=== PATIENT | female | born 1985 | race Caucasian/White ===

== ENCOUNTER 2020-01-14 14:44 | Inpatient (IN) ==
[2020-01-14] MEDS ORDERED: OXYTOCIN 30 UNITS/500 ML BAG IV PRN ×2 (15:00→22:17)
--- NOTE | 2020-01-14 15:06 | History & Physical Report ---
Date of Service January 14, 2020 Assessment & Plan (1) Active labor at term: 34 yo F @ 40+ weeks with no complications this here for monitoring of active labor. - Pt desires not to have artificial rupture of membranes at this time. Will continue to monitor labor progression. - Pt would not like an epidural at this time. - Expect . History of Present Illness Primary Care Provider: NO PCP Bella is a 34 yo F ; EDC 01/12/2020 at 40+ weeks today, admitted for induction of labor; no complications this . care by [facility]. Confirms contractions q3 minutes, good movement; no gush of fluid or vaginal bleeding. Labor plan includes NO epidural; in first had "Fentanyl as needed". Labs (06/09/2019): Blood type: A+ Antibody screen: negative Rubella status: immune VDLR/RPR: NR Gonorrhea: negative Chlamydia: negative HIV: negative GBS: negative HbSAg: negative Glucose tolerance test x2: normal OB Hx: last 10/05/17 39wks, labored for 22 hours before delivering a healthy [id number] baby boy via . [employer]ST Hx: Hx of ASCUS PAP 06/09/2019 with HPV cotesting negative. No other Hx abnormal PAPs. No Hx STIs. Allergies Allergy/AdvReac Type Severity Reaction Status Date / Time amoxicillin Allergy Hives Verified 01/14/20 14:53 azithromycin Allergy Hives Verified 01/14/20 14:53 [From Zithromax Z-Adonay] venlafaxine [From Effexor] Allergy Palpitation Verified 01/14/20 14:53 s Home Medications Home Medications Medication Instructions Recorded Confirmed Type prenat.vits,evelyn,[id number] 1 tab PO DAILY 06/06/19 01/14/20 History sertraline 100 mg tablet 100 mg PO DAILY 06/06/19 01/14/20 History ferrous sulfate 325 mg (65 mg 325 mg PO DAILY 01/07/20 01/14/20 History iron) tablet Patient History Medical History screening for malformation using ultrasonics (Resolved) History of anemia History of migraine History of varicella Surgical History No history of previous surgery Family History Mother Heart disease Osteoporosis Father Kidney stones Thyroid disease Social History (Updated 06/06/19 @ 16:43 by Danica Jones) Preferred Language: Upper Sorbian Editorial Clerk Required: No Beliefs That Will Affect Care: None marital status: Current Living Situation: Family Current Living Situation Comment: lives with and son Other Information That Helps Us Care for You: No Feels Safe at Home: Yes Safety Concerns: Feels Safe At This Time Smoking Status: Former smoker Hx Alcohol Use: No Hx Substance Use: No Review of Systems Constitutional: denies fever, chills, sweats, headache Respiratory: denies SOB, difficulty breathing Cardiac: denies CP, chest palpitations, chest pressure Breast: denies breast pain : denies dysuria Physical Exam Physical Exam: General: patient is alert and oriented, in NAD Cardiac: +S1/S2, no murmurs rubs or gallops Respiratory: lungs CTA b/l, anteriorly and posteriorly, no wheezes rales or rhonchi, no increased work of breathing, symmetric chest rise, no respiratory distress Abdomen: Gravid, fundal height is term, + FHTs, baby is presenting vertex, + palpable contractions every 3 minutes, EFW 7-8lbs Uterus: uterine fundus firm Lower Extremities: no LE edema or swelling, no deep calf pain, Clayton's sign negative b/l Genitourinary: Manual OB Exam: + cervical dilation 6 cm, + cervical effacement 100% and + station -2 OB Exam Monitor Tracing: + external FHT monitor used, + external uterine monitor used, + category I and + normal FHT variability Results & Data Vital Signs (Past 12 Hours) Vital Signs Pulse BP 01/14/20 14:51 73 113/76 Code Status & VTE Plan VTE Prophylaxis Plan VTE Prophylaxis will be ordered: No Monitoring External Monitor HR in the 140s with good variability. Tocodynamometer contractions q3 minutes Supervising Physician Co-Signing Physician Notes Resident Physician Supervision Note: I was present with Dr. Willson during the history and exam. I discussed the case with the resident and agree with the findings and plan as documented in the note. Any exceptions or clarifications are listed here: Term, , active labor. category one fetus. Anticipate . Declines intervention at this time. Offered arom. Documented By: Ana M Ramos MD, FACOG Coding Level of Care Code None Diagnoses Active labor at term Resident Activity Tracking Resident Involvement: Resident Care Provided Care Provided: OB Delivery
[2020-01-14] MEDS ORDERED: fentaNYL citrate 100 MCG/2 ML VIAL ONE (15:40)
[2020-01-14] MEDS ORDERED: ePHEDrine sulfate 50 MG/ML AMP ONE (15:40)
[2020-01-14] MEDS ORDERED: fentaNYL 2MCG/ML ROPIV 1.25MG/ML 100 ML BAG EPI ONE (15:41)
[2020-01-14] MEDS ORDERED: BUPIVACAINE 0.25% 30 ML VIAL ONE (15:41)
[2020-01-14] MEDS: LACTATED RINGER'S 1,000 ML IV PRN ×2 (15:43→16:40)
[2020-01-14 15:44] LABS: Hematocrit (blood only) 35.6 % (37-47); Hemoglobin 12.8 g/dL (12.0-16.0); Mean Corpuscular Hemoglobin 34.3 pg (25-34); Mean Corpuscular Volume 95.4 fL (80-100); Mean Platelet Volume 10.7 fL (7.4-10.4); Platelet Count 223 K/uL (130-400); RDW Coefficient of Variation 13.3 % (11.5-14.5); RDW Standard Deviation 45.9 fL (36.4-46.3); Red Blood Count 3.73 M/uL (4.2-5.4); White Blood Count 11.33 K/uL (4.8-10.8)
[2020-01-14] MEDS ORDERED: NALOXONE HCL 0.4 MG/1 ML VIAL/CARP IV PRN (15:55)
[2020-01-14] MEDS ORDERED: DiphenhydrAMINE HCL 50 MG/ML VIAL IV PRN (15:55)
[2020-01-14] MEDS ORDERED: fentaNYL 2MCG/ML ROPIV 1.25MG/ML 100 ML BAG EPI PRN (15:55)
[2020-01-14] MEDS ORDERED: NALBUPHINE HCL INJ 10 MG/ML AMP IV PRN (15:55)
[2020-01-14] MEDS ORDERED: NALOXONE HCL 1 MG in SODIUM CHLORIDE 0.9% 1000ML 1,000 ML IV PRN (15:55)
[2020-01-14] MEDS ORDERED: ONDANSETRON INJ 2 MG/ML 2 ML VIAL IV PRN (15:55)
[2020-01-14] MEDS ORDERED: ePHEDrine sulfate 50 MG/ML AMP IV PRN (15:55)
--- NOTE | 2020-01-14 15:56 | Anesthesiology Consultation ---
Date of Service January 14, 2020 Assessment & Plan Chart Review Chart Review: Patient NOT seen in Pre Admission Testing and Acceptable Risk for Labor Epidural Consults Requested none ASA ASA2 Proposed Anesthesia Anesthesia Type: Labor Epidural and CSE Risk / Benefits Reviewed With: PT / POA / Parent / Guardian, Accepts Plan and Informed Consent Obtained History Height/Weight Height: 5 ft 4 in Weight: 67.585 kg Allergies Allergy/AdvReac Type Severity Reaction Status Date / Time amoxicillin Allergy Hives Verified 01/14/20 14:53 azithromycin Allergy Hives Verified 01/14/20 14:53 [From Zithromax Z-Adonay] venlafaxine [From Effexor] Allergy Palpitation Verified 01/14/20 14:53 s Medications Home Medications Medication Instructions Recorded Confirmed Last Taken prenat.vits,evelyn,[id number] 1 tab PO DAILY 06/06/19 01/14/20 01/13/20 21:00 sertraline 100 mg tablet 100 mg PO DAILY 06/06/19 01/14/20 01/14/20 09:00 ferrous sulfate 325 mg (65 mg 325 mg PO DAILY 01/07/20 01/14/20 01/13/20 18:00 iron) tablet Active Medications Generic Name Dose Route Start Last Admin Trade Name Freq PRN Reason Stop Dose Admin Lactated Ringer's 1,000 mls @ 125 mls/hr 01/14/20 15:00 01/14/20 15:43 Lr IV 01/16/20 14:59 999 mls/hr .Q8H PRN Administration L&D Protocol Protocol NPO Date Last Intake of Fluids: 01/14/20 Time Last Intake of Fluids: 15:00 Date Last Intake of Solids: 01/14/20 Time Last Intake of Solids: 11:30 Past Medical History Medical History screening for malformation using ultrasonics (Resolved) History of anemia History of migraine History of varicella Exercise / Class Metabolic Activity II 4-5 Yardwork/Stairs/Walk up hill Past Family History Family History Mother Heart disease Osteoporosis Father Kidney stones Thyroid disease Past Surgical History Surgical History No history of previous surgery Past Anesthesia History No Hx of Anesthesia Complications and No Family Hx of Anesthesia Complications History of PONV No Hx of PONV and No Hx of Motion Sickness Social History Smoking Status: Former smoker Hx Alcohol Use: No Hx Substance Use: No substance use type: does not use Review of Systems no chest pain or sob Physical Exam Vital Signs Last Vital Signs Temp 36.6 C 01/14/20 14:52 Pulse 81 01/14/20 15:54 Resp 16 01/14/20 14:52 BP 113/76 01/14/20 14:51 Pulse Ox 91 01/14/20 15:54 ENMT Mouth: no TMJ abnormality Thyromental Distance: > or= 3.5 Finger Breadths Mallampati Class: II Neck normal visual inspection Respiratory normal respiratory effort Auscultation: lungs clear to auscultation bilaterally Cardiovascular Rate/Rhythm: regular rate and regular rhythm Musculoskeletal Spine: normal cervical ROM Neurologic moves all extremities Psychiatric Orientation: alert and oriented x 3 Testing Laboratory Results 01/14/20 15:19
--- NOTE | 2020-01-14 16:58 | Labor Progress Brief Note ---
Date of Service January 14, 2020 Subjective comfortable after epidural Assessment & Plan (1) Active labor at term: progressing nicely. fetus overall reassuring. anticipate . Physical Exam 2 Constitutional: WD/WN, vitals as above Gastrointestinal (Abdomen): soft, gravid, nt Psychiatric: A+Ox3, euthymic affect Genitourinary: cx--/0 arom--copious clear toco--q2min efm--125 wtih mod variability, accels present, no decels after arom had a decel to 80s that resolved with position change, oxygen, fluid then 0 Results & Data Vital Signs (Past 12 Hours) Vital Signs Temp Pulse Resp BP Pulse Ox 01/14/20 16:50 96 H 121/77 01/14/20 16:49 95 H 97 01/14/20 16:46 96 H 98/57 L 01/14/20 16:44 95 H 99 01/14/20 16:39 99 H 100 01/14/20 16:38 98 H 122/65 01/14/20 16:36 105 H 118/73 01/14/20 16:34 98 H 102/67 98 01/14/20 16:32 100 H 109/69 01/14/20 16:30 96 H 105/65 01/14/20 16:29 95 H 100 01/14/20 16:28 93 H 110/65 01/14/20 16:26 100 H 109/62 01/14/20 16:24 105 H 105/63 99 01/14/20 16:20 104 H 106/62 01/14/20 16:19 95 H 100 01/14/20 16:16 98 H 109/72 01/14/20 16:15 18 01/14/20 16:14 101 H 101/65 99 01/14/20 16:12 93 H 99/60 L 01/14/20 16:10 98 H 16 106/55 L 01/14/20 16:09 100 H 98 01/14/20 16:08 95 H 98/55 L 01/14/20 16:06 97 H 108/58 L 01/14/20 16:04 97 H 96 01/14/20 16:01 84 84 L 01/14/20 15:59 91 H 97 01/14/20 15:54 81 91 01/14/20 15:49 91 H 99 01/14/20 15:44 78 100 01/14/20 14:52 36.6 C 16 01/14/20 14:51 73 113/76 Coding Level of Care Code None Diagnoses Active labor at term
[2020-01-14] MEDS ORDERED: OXYCODONE/ACETAMINOPHEN 5mg/325mg TAB PO PRN (19:05)
[2020-01-14] MEDS ORDERED: ACETAMINOPHEN 325 MG TAB PO PRN (19:05)
--- NOTE | 2020-01-14 19:08 | Delivery Summary ---
Vaginal Delivery Summary Date of Service January 14, 2020 Pre-operative Diagnosis: at 40 weeks labor Post-operative Diagnosis: same Procedure: epidural arom second degree laceration and repair EBL: 300cc Anesthesia: epidural Procedure: The patient pushed for about two contractions to deliver a viable m betito in kali position. The nose and mouth were bulb suctioned on the perineum and the rest of the was then delivered without difficulty. The nose and mouth were again bulb suctioned and the infant was placed in the maternal abdomen for drying and attention. Cord was clamped and cut at one minute of life. Cord blood and segment obtained. Placenta delivered spontaneous, intact with a three vessel cord. Cervix/sulci/rectum were intact. A second degree perineal laceration was repaired in the normal standard fashion. Hemostasis obtained with dilute pitocin and fundal massage. Apgars were 7/8. Mother and baby doing well at the end of the delivery.
[2020-01-14] MEDS ORDERED: SUPERCREAM 0.870% 15 GM JAR EXT PRN (22:17)
[2020-01-14] MEDS ORDERED: bisacodyL 10 MG SUPP PR PRN (22:17)
[2020-01-14] MEDS ORDERED: HYDROCORTISONE ACETATE 25 MG SUPP PR PRN (22:17)
[2020-01-14] MEDS ORDERED: BENZOCAINE 20% AER SPR 82.5 GM CAN EXT PRN (22:17)
[2020-01-14] MEDS ORDERED: DIPHTHERIA/TETANUS/PERTUSSIS 0.5 ML SYR/VIAL IM ONE (22:17)
[2020-01-14] MEDS: DOCUSATE SODIUM 100 MG CAP PO SCH (23:02)
[2020-01-15] MEDS: IBUPROFEN 600 MG TAB PO PRN ×2 (04:42→17:41)
[2020-01-15 06:32] LABS: Hematocrit (blood only) 28.9 % (37-47); Hemoglobin 10.2 g/dL (12.0-16.0)
--- NOTE | 2020-01-15 06:35 | Obstetrical Progress Note ---
Date of Service <Stacy Willson - Last Filed: 01/15/20 06:58> January 15, 2020 Assessment & Plan <Stacy Willson - Last Filed: 01/15/20 06:58> (1) Encounter for care and examination after delivery: 34 yo PPD #1 from [facility] at 40+ weeks. Doing well overnight and without complaints. - Will continue routine care. - Following discharge will have 6 week follow up appointment with Dr. Ramos. Subjective <Stacy Armstrongfaina - Last Filed: 01/15/20 06:58> 34 yo female ; PPD # 1 following vaginal delivery at 40+ weeks (EDC 01/12/2020); doing well this AM; no abdominal cramping/pain; voiding well; tolerating meals overnight, able to ambulate some within the room. Patient is which she reports is going well and that Luke is "getting the hang of it faster than her first". Some vaginal bleeding that she reports is more than after her first delivery but no headache, dizziness, shortness of breath, chest pain. Review of Systems Constitutional: denies fever, chills, sweats, headache Respiratory: denies SOB, difficulty breathing Cardiac: denies CP, chest palpitations, chest pressure Breast: denies breast pain : denies dysuria Physical Exam <Stacy Willson - Last Filed: 01/15/20 06:58> General: patient is alert and oriented, in NAD Cardiac: +S1/S2, no murmurs rubs or gallops Respiratory: lungs CTA b/l, anteriorly and posteriorly, no wheezes rales or rhonchi, no increased work of breathing, symmetric chest rise, no respiratory distress Abdomen: soft, NT, +bowel sounds Uterus: uterine fundus firm, palpable below the level of the umbilicus Lower Extremities: no LE edema or swelling, no deep calf pain, Clayton's sign negative b/l Results & Data <Stacy ArmstrongDO faina - Last Filed: 01/15/20 06:58> Vital Signs (Past 12 Hours) Vital Signs Temp Pulse Pulse Resp BP BP Pulse Ox 01/15/20 04:35 36.7 C 76 18 128/74 01/14/20 23:30 36.7 C 93 H 18 131/82 01/14/20 22:10 36.7 C 93 H 18 125/76 01/14/20 21:05 100 H 114/73 01/14/20 20:50 96 H 118/72 01/14/20 20:35 91 H 131/78 01/14/20 20:20 82 133/71 01/14/20 20:05 88 119/79 01/14/20 19:50 93 H 123/78 01/14/20 19:35 95 H 125/82 01/14/20 19:20 106 H 127/69 01/14/20 19:05 106 H 125/72 01/14/20 18:49 99 H 80 L 01/14/20 18:47 111 H 80 L 01/14/20 18:44 37.0 C 104 H 18 100 01/14/20 18:39 103 H 99 01/14/20 18:37 106 H 110/77 01/14/20 18:34 104 H 99 Laboratory Results Laboratory Results - last 24 hr 01/14/20 01/15/20 15:19 06:06 WBC 11.33 H RBC 3.73 L Hgb 12.8 10.2 L Hct 35.6 L 28.9 L MCV 95.4 MCH 34.3 H MCHC 36.0 RDW Std Deviation 45.9 RDW Coeff of Kody 13.3 Plt Count 223 MPV 10.7 H Medications Administered Current Medications Acetaminophen (Tylenol) 650 mg PO Q6H PRN PRN Reason: Pain/GILLESPIE/Fever Stop: 02/13/20 19:04 Benzocaine (Dermoplast Pain Relieving [place]) 1 appln EXT PRN PRN PRN Reason: Perineal Discomfort Stop: 02/13/20 22:16 Last Admin: 01/15/20 04:44 Dose: 82.5 appln Documented by: Bisacodyl (Dulcolax) 5 mg PO 1999 [facility] Stop: 01/15/20 20:01 Bisacodyl (Dulcolax) 10 mg ME DAILY PRN PRN Reason: No BM on 2nd post- day Stop: 02/13/20 22:16 Cocaine HCl (Supercream 0.870%) 1 gm EXT BID PRN PRN Reason: Hemorrhoidal Inflammation Stop: 01/28/20 22:16 Docusate Sodium (Colace) 100 mg PO DAILY@ [facility] Stop: 02/13/20 22:16 Last Admin: 01/14/20 23:02 Dose: Not Given Documented by: Hydrocortisone (Anusol Hc) 25 mg ME BID PRN PRN Reason: Hemorrhoidal Inflammation Stop: 02/13/20 22:16 Oxytocin (Pitocin) 30 units in 500 mls @ 333.333 mls/hr IV .Q1H30M PRN; Protocol PRN Reason: Bleeding Control Stop: 02/13/20 22:16 Ibuprofen (Motrin) 600 mg PO Q4H PRN PRN Reason: Pain/GILLESPIE/Cramping/Fever Stop: 02/13/20 19:04 Last Admin: 01/15/20 04:42 Dose: 600 mg Documented by: Oxycodone/Acetaminophen (Percocet 5mg/325mg) 1 tab PO Q4H PRN PRN Reason: Pain not relieved by... Stop: 01/28/20 19:04 Prenat Multivit/[place]/Iron/Folic Ac ( Vitamin) 1 tab PO DAILY@08 [facility] Stop: 02/14/20 07:59 Sertraline HCl (Zoloft) 100 mg PO DAILY [facility] Stop: 02/14/20 08:59 <Ana M Ramos MD, FACOG - Last Filed: 01/15/20 07:11> Co-Signing Physician Notes Resident Physician Supervision Note: I interviewed and examined the patient. Discussed with Dr. Faye and agree with findings and plan as documented in the note. Any exceptions or clarifications are listed here: Doing well. Routine care. NO issues. Documented By: Ana M Ramos MD, FACOG Resident Activity Tracking <Stacy Willson DO - Last Filed: 01/15/20 06:58> Resident Involvement: Resident Care Provided Care Provided: OB Delivery
[2020-01-15] MEDS ORDERED: PRENATAL VITAMIN 1 TAB PO SCH (08:00)
[2020-01-15] MEDS: DOCUSATE SODIUM 100 MG CAP PO SCH (08:05)
[2020-01-15] MEDS ORDERED: SERTRALINE HCL 100 MG TABLET PO SCH (09:00)
[2020-01-15] MEDS ORDERED: bisacodyL 5 MG TABEC PO SCH (20:00)
== END 2020-01-15 20:05 | disposition home or self-care (01) | DRG 807 ==
LOC: OPB 14:44 → 4S1 14:46 → 4S2 22:12